=== PATIENT | female | born 1975 | race Caucasian/White ===

== ENCOUNTER → 2016-10-12 | Outpatient (CLI) | payer OTHER ==
[2014-07-02 19:06] VITALS: BP 126/83
--- NOTE | 2016-10-12 16:17 | KCIC ---
Examination: Ultrasound thyroid HISTORY: History of thyroid nodule COMPARISON: 07/06/2013 FINDINGS: The right lobe of thyroid gland measures 5.4 x 1.8 x 1.6 cm. The left lobe of thyroid gland measures 4.9 x 1.2 x 1.4 cm. The isthmus measures 2.2 mm in AP dimension. 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 Electronically signed by: Joseph Thomas MD (10/12/2016 4:14 PM) [place] [id number]
== END | disposition home or self-care (01) ==
LOC: KCIC US 15:16
PROVIDERS: ATTEND Physician Assistant Medical
DX: E04.1 Nontoxic single thyroid nodule (principal)
CPT/HCPCS: 76536